=== PATIENT | male | born 2005 | race Caucasian/White ===

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

== ENCOUNTER 2023-11-06 17:44 | Emergency (ER) | payer OTHER, SELFPAY ==
--- NOTE | 2023-11-06 17:48 | ED.SKABFB ---
HPI - Skin/Abscess/Foreign Bdy General Chief complaint: Skin/Abscess/Foreign Body Stated complaint: skin break out on bilateral hands Time Seen by Provider: 11/06/23 17:47 Source: patient Mode of arrival: ambulatory Limitations: no limitations History of Present Illness HPI narrative: Ebony is a 18-year-old male patient presenting to clinic today with complaints of a rash to his bilateral hands. He reports he has had eczema to his hands for couple years now however he is having and flare. States that the triamcinolone cream is not helping. Related Data Home Medications Medication Instructions Recorded Confirmed triamcinolone acetonide 0.1 % 1 applic topical PRN PRN eczema 11/06/23 11/06/23 topical cream Allergies Allergy/AdvReac Type Severity Reaction Status Date / Time Penicillins AdvReac Mild rash Verified 11/06/23 17:48 Review of Systems Review of Systems: Pertinent positives per HPI. Patient denies any fever, chills, headache, visual changes, dizziness, cough, runny nose, sore throat, shortness of breath, chest pain, palpitations, nausea, vomiting, diarrhea, constipation, abdominal pain, or any urinary issues. [facility] Past Medical History Medical History Asthma BMI 34.0-34.9,adult Eczema Encounter to establish care History of eustachian tube dysfunction Surgical History Surgical History H/O right knee surgery History of nasal surgery Family History Family History Mother Diabetes mellitus Hypertension Father Hypertension Social History Social History Smoking status: Never smoker Alcohol intake: never Substance use: never Substance use type: does not use Living arrangements: with family Occupation/Education: student Gender identity (if verbalized by the patient): Male Comments At the time of my signature, I reviewed and agree with the nursing past medical, surgical, social, and family history. There is no relevant family history pertinent to the patient complaint. Exam Narrative: General: Well-developed, well nourished, in no apparent distress Head: Normocephalic, atraumatic. Cardio: Regular rate and rhythm, s1 and s2 normal, no murmur appreciated. Resp: Clear to auscultation bilaterally, no rhonchi, rales, wheezing or rubs. Integumentary: [place], warm, and dry, eczema-excoriated red, raised, scaly rash to bilateral hands Course Course Emergency Course: Portions of this record may have been created with voice recognition software. Level of Care: Express Care Visit Vital Signs Vital signs: Vital signs reviewed MDM - Skin/Abscess/Foreign Bdy MDM Narrative Medical decision making narrative: At the time of visit patient is resting comfortably on the exam table. Patient appears to be nontoxic. Plan: I suspect patient has an exacerbation of eczema to bilateral hands. Prescription for mupirocin cream to cover for secondary infection as well as clobetasol cream sent to the pharmacy. Supportive measures were discussed with the patient and they voiced understanding discharge instructions and agrees to treatment plan. Return precautions reviewed Differential Diagnosis Differential diagnosis: Likely abscess of skin or subcutaneous tissue, viral exanthem, urticaria, herpes zoster, allergic reaction to drug, cellulitis, eczema, insect bites, impetigo and contact dermatitis Discharge Plan Discharge Clinical Impression: Eczema Qualifiers: Eczema type: unspecified Qualified Code(s): L30.9 - Dermatitis, unspecified Patient Disposition: Home, Self-Care Condition: Stable Instructions: Antibiotic Form, Eczema (ED) Additional Instructions: Moist dry skin twice daily with using a non scented lotion such as Cetaphil, Lubriderm,
[2023-11-06 17:54] VITALS: BP 138/57; PULSE 81; RESP 16; TEMP 36.8; O2SAT 98
== END 2023-11-06 18:04 | disposition home or self-care (01) ==
PROVIDERS: Emergency Provider Nurse Practitioner Family; PCP Family Medicine
DX: L30.9 Dermatitis, unspecified (principal); J45.909 Unspecified asthma, uncomplicated
CPT/HCPCS: 99213; G0463

== ENCOUNTER 2025-01-02 08:41 | Outpatient (CLI) | payer OTHER, MEDICAID, SELFPAY ==
[2025-01-02 13:12] LABS: CRP < 0.5 mg/dL (<1.0)
[2025-01-03 11:09] LABS: Anti-CCP Ab, IgG/IgA 9 units (0-19)
[2025-01-03 15:09] LABS: ANA by IFA Rfx Titer/Pattern Negative (.)
== END 2025-01-02 08:42 | disposition home or self-care (01) ==
LOC: ANHGOSHLAB 08:42
PROVIDERS: PCP Nurse Practitioner Family; Visit Provider Otolaryngology
DX: K12.30 Oral mucositis (ulcerative), unspecified (principal)
CPT/HCPCS: 36415; 85652; 86038; 86140; 86200; 86430